=== PATIENT | male | born 1980 | race Caucasian/White ===

== ENCOUNTER 2016-10-23 23:50 | Emergency (ER) | payer SELFPAY ==
[~2016-10-23] VITALS: Ht 165.1 cm; Wt 70.5 kg
[2016-10-24 00:02] VITALS: Ht 165.1 cm; Wt 70.5 kg
[2016-10-24] MEDS ORDERED: PRED20TA PO (01:48)
[2016-10-24] MEDS ORDERED: BEN50 PO (01:48)
--- NOTE | 2016-10-24 01:54 | ERD ---
ER Documentation Chief Complaint Date/Time DATE: 10/24/16 TIME: 01:49 Chief Complaint skin rash, itch and redness HPI 36-year-old male complaining of widespread pruritic skin lesions 2 days. He also reports lower lip swelling. 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 Denies shortness of breath. Denies exposure to new foods or new cleaning products. ROS All systems reviewed and are negative except as per history of present illness. Medications Home Meds Active Scripts Prednisone* (Prednisone*) 20 Mg Tab, 60 MG PO DAILY for 4 Days, TAB Prov:IVAN STAPLETON. [employer] 10/24/16 Diphenhydramine Hcl* (Benadryl*) 50 Mg Cap, 50 MG PO Q6H Y for ITCHING/RASH, # 30 CAP Prov:IVAN STAPLETON. [employer] 10/24/16 Allergies Allergies: Coded Allergies: No Known Allergy (Unverified , 10/24/16) PMhx/Soc Medical and Surgical Hx: pt denies Medical Hx Hx Alcohol Use: No Hx Substance Use: No Hx Tobacco Use: No Physical Exam Vitals Vital Signs Date Time Temp Pulse Resp B/P Pulse Ox O2 Delivery O2 Flow Rate FiO2 10/24/16 00:02 99.3 109 18 122/67 97 Physical Exam General impression: Well-developed, well-nourished. Alert, oriented, in no acute distress Head: Normocephalic, atraumatic. Eyes: PERRL, EOM normal. Conjunctiva not injected. ENT: Slight lower lip swelling noted, no pharyngeal swelling or every obstruction. No stridor. Neck: Supple, nontender. No lymphanopathy. No nuchal rigidity. Respiration: Normal respiratory effort. Lungs clear to auscultate bilaterally. No wheezes, rales or rhonchi. Cardiovascular: Regular rate and rhythm. No murmurs or extra heart sounds. Neuro: Mental status normal, speech normal. Skin: Normal turgor. Widespread, confluent, erythematous urticaria noted throughout patient's torso, face, and extremities. Psych: Normal mood and affect. Results 24 hrs Current Medications Medications (Trade) Dose Ordered Sig/Te Route PRN Reason Start Time Stop Time Status Last Admin Dose Admin Diphenhydramine HCl (Benadryl) 50 mg ONCE ONCE PO 10/24/16 02:00 10/24/16 02:01 Prednisone (Prednisone) 60 mg ONCE ONCE PO 10/24/16 02:00 10/24/16 02:01 Procedures/MDM Well-appearing 36-year-old male presents to ED with pruritic urticaria 2 days. I suspect from allergic reaction, although it is unknown what the allergen is at this time. Patient does have some lower lip swelling, but did not have any sign of area obstruction or anaphylaxis. Benadryl and prednisone given to the patient in the ED. Patient lesions improved after the medication. Patient appears well, stable for discharge and outpatient management. Patient advised to return to ED if he has any sinus shortness of breath. Medical decision making shared with patient and family. Education provided to patient and family. Patient and family expressed understanding of the plan. Medications on discharge: Benadryl, prednisone. Follow-up: Primary care provider in 2-3 days or return to ED if worse. Departure Diagnosis: Primary Impression: Urticaria Condition: Stable Patient Instructions: Reji [facility] Usted se young hecho un examen mdico de control que le indica que no est en dora condicin que requiera tratamiento urgente en el Departamento de Emergencia. Un estudio ms profundo y el tratamiento de oneal condicin pueden esperar sin ningn riesgo hasta que usted sea atendida/o en el consultorio de oneal mdico o dora cl kirsty. Es responsabilidad suya arreglar dora bin para el seguimiento del matty. MANEJO DE CONDICIONES NO URGENTES EN EL FUTURO 1) Si usted tiene un mdico de atencin primaria: Usted debera llamar a oneal mdico de atencin primaria antes de venir al departamento de emergencia. Despus de las horas de consultorio, oneal doctor o oneal asociado/a est disponible por telfono. El mdico o enfermero de maciej en el servicio telefnico puede asesorarle por timothy medio para atender el problema, o matty contrario se puede programar dora bin. 2) Si usted no tiene un mdico de atencin primaria: Llame al mdico o clnica de referencia que aparece abajo iesha las horas de consultorio para hacer dora bin para que le vean. CLINICAS: [facility] [phone] [facility] [phone] [facility] [phone] [place] [phone] [place] [phone] [facility]. [phone] [address] Additional Instructions: Llame al doctor MAANA y nevaeh dora BIN PARA DENTRO DE 2-3 PAZ.Dgale a la secretaria que nosotros le instruimos hacer esta bin.Avise o llame si oneal condicin se empeora antes de la bin. Regresa aqui si peor o no mejor. IVAN STAPLETON NP Oct 24, 2016 01:54
[2016-10-24] MEDS ORDERED: predniSONE 20 MG TAB PO ONE (02:00)
[2016-10-24] MEDS ORDERED: DIPHENHYDRAMINE 50 MG CAP PO ONE (02:00)
== END 2016-10-24 01:57 | disposition home or self-care (01) ==
LOC: FTE 23:50
DX: L50.9 Urticaria, unspecified (principal)
CPT/HCPCS: 99283; J7512